=== PATIENT | male | born 1985 | race Caucasian/White ===

== ENCOUNTER 2018-11-01 17:48 | Emergency (ER) | payer SELFPAY ==
[2018-11-01] MEDS ORDERED: TETANUS & DIPHTHERIA TOX,ADULT 0.5 ML VIAL ONE (18:25)
[2018-11-01] MEDS ORDERED: LIDOCAINE 1% MPF 5 ML VIAL ONE (18:25)
[2018-11-01] MEDS ORDERED: BUPIVACAINE 0.5% PF 10 ML VIAL ONE (18:25)
--- NOTE | 2018-11-01 19:54 | ER ---
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 Transition of care: patient was not received from another setting of care. Onset of symptoms was November 01, 2018. Risk Assessment: Do you want to hurt yourself or someone else? Patient reports no desire to harm self or others. Initial Sepsis Screen: Does the patient meet any 2 criteria? No. Patient's initial sepsis screen is negative. Does the patient have a suspected source of infection? No. Patient's initial sepsis screen is negative. Care prior to arrival: None. 17:50 Method Of Arrival: Ambulatory 17:50 Acuity: CORBIN 4 hj Historical: - Allergies: 17:52 No Known Allergies; - Home Meds: 17:52 None [Active]; hj - PMHx: 17:52 None; hj - PSHx: 17:52 None; hj - Immunization history:: Adult Immunizations up to date. - Social history:: Smoking status: Patient/guardian denies using tobacco. Screenin:07 Abuse screen: Denies threats or abuse. Denies injuries from another. Nutritional aj screening: No deficits noted. Tuberculosis screening: No symptoms or risk factors identified. Fall Risk None identified. Assessment: 18:07 General: Appears in no apparent distress. comfortable, Behavior is calm, cooperative, aj appropriate for age. Pain: Complains of pain in dorsal aspect of distal phalanx of right ring finger, dorsal aspect of middle phalanx of right ring finger, palmar aspect of distal phalanx of right ring finger and palmar aspect of middle phalanx of right ring finger. Neuro: Level of Consciousness is awake, alert, obeys commands, Oriented to person, place, time, situation, Appropriate for age. Respiratory: Airway is patent Respiratory effort is even, unlabored, Respiratory pattern is regular, symmetrical. Derm: Skin is intact, is healthy with good turgor, Skin is pink, warm \T\ dry. normal. Injury Description: Laceration sustained to palmar aspect of distal phalanx of right ring finger and palmar aspect of middle phalanx of right ring finger. 19:10 Reassessment: Patient appears in no apparent distress at this time. Patient and/or aa1 family updated on plan of care and expected duration. Pain level reassessed. Patient is alert, oriented x 3, equal unlabored respirations, skin warm/dry/pink. Pt irrigating wound with NS at this time. 20:30 Reassessment: Patient appears in no apparent distress at this time. Patient is alert, aa1 oriented x 3, equal unlabored respirations, skin warm/dry/pink. Discussed d/c \T\ f/u instructions with pt \T\ mother; denies questions or concerns at this time. Ambulatory to lobby with steady gait. Patient states feeling better. Vital Signs: 17:52 BP 136 / 78; Pulse 72; Resp 18; Temp 97.8(TE); Pulse Ox 100% on R/A; Weight 113.4 kg; hj Height 6 ft. 3 in. (190.50 cm); Pain 10/10; 20:00 BP 123 / 76; Pulse 75; Resp 16; Temp 97.9; Pulse Ox 99% on R/A; Pain 2/10; aa1 17:52 Body Mass Index 31.25 (113.40 kg, 190.50 cm) ED Course: 17:50 Patient arrived in ED. 17:52 Triage completed. hj 17:52 Kimber Han FNP-C is PHCP. kb 17:52 Augustus Murphy MD is Attending Physician. kb 17:52 Arm band placed on left wrist. hj 18:02 Irene Golden, SHAYNE is Primary Nurse. aj 18:07 Bed in low position. Call light in reach. Adult w/ patient. aj 18:26 Hand Right 3 View XRAY In Process Unspecified. EDMS 19:20 Wound care: to laceration located on palmar aspect of distal phalanx of right ring jp3 finger was cleaned with Betadine, debrided using Betadine scrub, irrigated with normal saline, Patient tolerated well. 19:51 Ermias Stinson MD is Referral Physician. kb 20:00 Assist provider with laceration repair on right middle finger that was 2.5 cm. or less aa1 using sutures. Set up tray. Performed by Kimber LING Patient tolerated well. Patient did not have IV access during this emergency room visit. 20:16 Dressings: Adaptic X 1; palmar aspect of distal phalanx of right ring finger Tube gauze jp3 X 1; palmar aspect of distal phalanx of right middle finger and palmar aspect of middle phalanx of right middle finger. Aluminum finger splint applied to palmar aspect of distal phalanx of right middle finger, palmar aspect of middle phalanx of right middle finger and palmar aspect of proximal phalanx of right middle finger. Patient maintains SpO2 saturation greater than 95% on room air. Wound care: was dressed with adaptic non-adhering dressing; covered with tubular gauze. Wound care: was dressed with finger splint was covered with coban tape.. Administered Medications: 18:08 Drug: Tetanus-Diphtheria Toxoid Adult 0.5 ml {Sampler Pickup: [employer]. Exp: aj 06/25/2020. Lot #: [id number]. } Route: IM; Site: right deltoid; 20:28 Follow up: Response: No adverse reaction aa1 18:15 Drug: Bupivacaine (0.5 %) 1 vials Volume: 10 ml; Route: Infiltration; aj 18:15 Drug: Lidocaine (1 %) 1 vials Volume: 5 ml; Route: Infiltration; aj 20:07 Drug: Augmentin 875 mg Route: PO; aa1 20:28 Follow up: Response: No adverse reaction aa1 Outcome: 10/31 20:40 Discharged to home ambulatory, with family. aa1 Condition: good Discharge instructions given to patient, family, Instructed on discharge instructions, follow up and referral plans. medication usage, Demonstrated understanding of instructions, follow-up care, medications, wound care, Prescriptions given X 2. 11/01 19:53 Discharge ordered by . kb 20:41 Patient left the ED. aa1 Signatures: Dispatcher [employer] EDMS Kimber Han FNP-C FNP-Ckb Autenrieth, Alissa, RN RN aa1 Irene Golden RN RN aj Joaquin, Henry, RN RN hj Pisarski, Jacob jp3 Corrections: (The following items were deleted from the chart) 17:53 17:52 Pulse 72bpm; Resp 18bpm; Pulse Ox 100% RA; Temp 97.8F Temporal; 113.4 kg; Height hj 6 ft. 3 in.; BMI: 31.2; Pain 01/12; hj 19:21 19:20 Wound care: to laceration located on right hand jp3 jp3
--- NOTE | 2018-11-01 19:55 | EDPHYS ---
Physician Documentation [facility] Name: Adam Vaughan Age: 33 yrs Sex: Male : 1985 Arrival Date: 11/01/2018 Time: 17:50 Bed 23 Private MD: ED Physician Augustus Murphy HPI: 11/01 20:28 This 33 yrs old Male presents to ER via Ambulatory with complaints of Finger kb Injury. 20:28 The patient or guardian reports injury, a laceration, irregular, ragged, pain, kb swelling, tenderness. The complaints affect the palmar aspect of distal phalanx of right middle finger. Context: The problem was sustained outdoors, resulted from a crush injury, trailer. Onset: The symptoms/episode began/occurred just prior to arrival. Modifying factors: The symptoms are alleviated by nothing, the symptoms are aggravated by nothing. Associated signs and symptoms: The patient has no apparent associated signs or symptoms. Severity of symptoms: At their worst the symptoms were moderate, in the emergency department the symptoms are unchanged. The patient has not experienced similar symptoms in the past. The patient has not recently seen a physician. Historical: - Allergies: 17:52 No Known Allergies; hj - Home Meds: 17:52 None [Active]; hj - PMHx: 17:52 None; hj - PSHx: 17:52 None; hj - Immunization history:: Adult Immunizations up to date. - Social history:: Smoking status: Patient/guardian denies using tobacco. ROS: 20:27 Constitutional: Negative for fever, chills, and weight loss, Neck: Negative for injury, kb pain, and swelling, Cardiovascular: Negative for chest pain, palpitations, and edema, Respiratory: Negative for shortness of breath, cough, wheezing, and pleuritic chest pain, Abdomen/GI: Negative for abdominal pain, nausea, vomiting, diarrhea, and constipation, Back: Negative for injury and pain, : Negative for injury, bleeding, discharge, and swelling, Neuro: Negative for headache, weakness, numbness, tingling, and seizure. 20:27 Skin: Positive for laceration(s), swelling, of the palmar aspect of distal phalanx of right middle finger. Exam: 20:25 Constitutional: This is a well developed, well nourished patient who is awake, alert, kb and in no acute distress. Head/Face: Normocephalic, atraumatic. Chest/axilla: Normal chest wall appearance and motion. Nontender with no deformity. No lesions are appreciated. Cardiovascular: Regular rate and rhythm with a normal S1 and S2. No gallops, murmurs, or rubs. Normal PMI, no JVD. No pulse deficits. Respiratory: Lungs have equal breath sounds bilaterally, clear to auscultation and percussion. No rales, rhonchi or wheezes noted. No increased work of breathing, no retractions or nasal flaring. Abdomen/GI: Soft, non-tender, with normal bowel sounds. No distension or tympany. No guarding or rebound. No evidence of tenderness throughout. Neuro: Awake and alert, GCS 15, oriented to person, place, time, and situation. Cranial nerves II-XII grossly intact. Motor strength 5/5 in all extremities. Sensory grossly intact. Cerebellar exam normal. Normal gait. 20:25 Skin: injury, laceration(s), the wound is approximately 4 cm(s), of the palmar aspect of distal phalanx of right ring finger, that can be described as clean, no foreign body, irregular, jagged, without bleeding. Vital Signs: 17:52 BP 136 / 78; Pulse 72; Resp 18; Temp 97.8(TE); Pulse Ox 100% on R/A; Weight 113.4 kg; hj Height 6 ft. 3 in. (190.50 cm); Pain 10/10; 20:00 BP 123 / 76; Pulse 75; Resp 16; Temp 97.9; Pulse Ox 99% on R/A; Pain 2/10; aa1 17:52 Body Mass Index 31.25 (113.40 kg, 190.50 cm) Procedures: 18:13 Nerve block: (digital) of palmar aspect of proximal phalanx of right ring finger Medication: Lidocaine 1% without epinephrine Marcaine 0.5%, Amount: 6 mls were injected, Effect: the patient has resolution of the pain, Set up for procedure. Performed by Kimber LING Patient tolerated well. Laceration: 19:48 Wound Repair of 4cm ( 1.6in ) subcutaneous laceration to palmar aspect of distal kb phalanx of right ring finger. Irregularly shaped.. Skin/tissue flap noted.. Distal neuro/vascular/tendon intact. Anesthesia: Digital block administered with 1% lidocaine. Wound prep: Extensive cleansing with betadine with hibiclenz by marine fisheries technician by me, Wound irrigation with saline by marine fisheries technician by me, Wound explored extensively, Copious irrigation. Skin closed with 12 4-0 Prolene using interrupted sutures and sterile technique. Dressed with finger splint. Patient tolerated well. MDM: 17:56 Patient medically screened. kb 19:49 Data reviewed: vital signs, nurses notes. Data interpreted: Pulse oximetry: on room air kb is 100 %. Interpretation: normal. Counseling: I had a detailed discussion with the patient and/or guardian regarding: the historical points, exam findings, and any diagnostic results supporting the discharge/admit diagnosis, radiology results, the need for outpatient follow up, a hand specialist, to return to the emergency department if symptoms worsen or persist or if there are any questions or concerns that arise at home. 19:49 Test interpretation: by ED physician or midlevel provider: plain radiologic studies, kb fracture of distal 4th digit. 11/01 18:00 Order name: Hand Right 3 View XRAY; Complete Time: 20:13 kb 11/01 18:00 Order name: Prolene, Sutures; Complete Time: 18:17 kb 11/01 18:00 Order name: Dressing - Wound; Complete Time: 18:17 kb 11/01 18:00 Order name: Gloves, Sterile; Complete Time: 18:17 kb 11/01 18:00 Order name: Setup Suture Tray; Complete Time: 18:17 kb 11/01 19:49 Order name: Finger Splint; Complete Time: 20:07 kb Administered Medications: 18:08 Drug: Tetanus-Diphtheria Toxoid Adult 0.5 ml {Yardage Caller: [employer]. Exp: aj 06/25/2020. Lot #: [id number]. } Route: IM; Site: right deltoid; 20:28 Follow up: Response: No adverse reaction aa1 18:15 Drug: Bupivacaine (0.5 %) 1 vials Volume: 10 ml; Route: Infiltration; aj 18:15 Drug: Lidocaine (1 %) 1 vials Volume: 5 ml; Route: Infiltration; aj 20:07 Drug: Augmentin 875 mg Route: PO; aa1 20:28 Follow up: Response: No adverse reaction aa1 Disposition: 07/31 06:56 Co-signature as Attending Physician, Augustus Murphy MD. rn Disposition: 11/01/18 19:53 Discharged to Home. Impression: Laceration with foreign body of right ring finger without damage to nail, Displaced fracture of distal phalanx of right ring finger. - Condition is Stable. - Discharge Instructions: Finger Fracture, [id number], Laceration Care, Adult, [id number]. - Prescriptions for Augmentin 875- 125 mg Oral Tablet - take 1 tablet by ORAL route every 12 hours for 10 days; 20 tablet. Tylenol- Codeine #3 300-30 mg Oral Tablet - take 1 tablet by ORAL route every 6 hours As needed; 6 tablet. - Medication Reconciliation Form, Thank You Letter, Antibiotic Education, Prescription Opioid Use form. - Follow up: Emergency Department; When: As needed; Reason: Worsening of condition. Follow up: Private Physician; When: 2 - 3 days; Reason: Recheck today's complaints, Continuance of care, Re-evaluation by your physician. Follow up: Ermias Stinson MD; When: 2 - 3 days; Reason: Recheck today's complaints. - Notes: Have sutures removed in 10-14 days Follow up with hand surgeon within a week Signatures: Dispatcher [employer] Kimber Robb FNP-C FNP-Medina Woodson RN RN aa1 Irene Golden RN RN aj Nieto, Roman, MD MD rn Joaquin, Henry, RN RN Corrections: (The following items were deleted from the chart) 11/01 18:52 18:13 Nerve block: (digital) of palmar aspect of proximal phalanx of right ring finger kb Medication: Lidocaine 1% without epinephrine Marcaine 0.5%, Amount: 6 mls were injected, Effect: the patient has resolution of the pain, Set up for procedure. Performed by Kimber LING Patient tolerated well. gideon 20:41 19:53 11/01/2018 19:53 Discharged to Home. Impression: Laceration with foreign body of aa1 right ring finger without damage to nail; Displaced fracture of distal phalanx of right ring finger. Condition is Stable. Forms are Medication Reconciliation Form, Thank You Letter, Antibiotic Education, Prescription Opioid Use. Follow up: Emergency Department; When: As needed; Reason: Worsening of condition. Follow up: Private Physician; When: 2 - 3 days; Reason: Recheck today's complaints, Continuance of care, Re-evaluation by your physician. Follow up: Ermias Stinson; When: 2 - 3 days; Reason: Recheck today's complaints. kb
--- NOTE | 2018-11-01 20:04 | RAD REPORT ---
EXAM DESCRIPTION: RAD - Hand Right 3 View - 11/01/2018 6:26 pm CLINICAL HISTORY: PAIN Trauma, pain COMPARISON: No comparisons FINDINGS: Soft tissue laceration and tuft fracture is seen involving the fourth finger. Slight radio paque debris is present in the region.
[2018-11-01] MEDS ORDERED: AMOX/K CLAV 875 MG TAB ONE (20:14)
== END 2018-11-01 20:41 | disposition home or self-care (01) ==
LOC: ER 17:48
PROC: 0JQJ0ZZ Repair Right Hand Subcutaneous Tissue and Fascia, Open Approach (ICD-10-PCS; principal; 2018-11-01)
DX: S61.212A Laceration without foreign body of right middle finger without damage to nail, initial encounter (principal); S62.634A Displaced fracture of distal phalanx of right ring finger, initial encounter for closed fracture; W23.0XXA Caught, crushed, jammed, or pinched between moving objects, initial encounter; Z23 Encounter for immunization
CPT/HCPCS: 64450; 90471; 90714; 99285